=== PATIENT | female | born 1965 | race Caucasian/White ===

== ENCOUNTER 2016-12-20 11:12 | Emergency (ER) | payer MEDICAID ==
[2014-02-15 16:54] VITALS: BMI 41.0
[~2016-12-20 11:12] MED LIST: LORTAB 5/500 TA1 TA2 PO; MULTI-DAY VITAM1 TAB PO; TRAZODONE HCL50 MG PO; ZESTORETIC 20-1 EACH; ZESTORETIC 20-1 EACH PO
[2016-12-20 13:04] LABS: BASOPHILS 0.5 % (0.0-2.0); EOSINOPHILS 5.5 % (0-7); HEMATOCRIT 41.4 % (36.0-48.0); HEMOGLOBIN 13.9 g/dL (12-16); LYMPHOCYTES 23.4 % (15-50); MCH 29.4 pg (26.0-34.0); MCHC 33.6 g/dL (31.0-37.0); MCV 87.7 fL (80.0-100.0); MEAN PLATELET VOLUME 11.4 fL (7.4-10.4); MONOCYTES 9.7 % (2-11); NEUTROPHILS 60.9 % (40-80); RBC 4.72 10x6/uL (4.00-5.40); RDW 15.3 % (11.5-14.5)
[2016-12-20 13:24] LABS: PLATELET COUNT 62 10x3/uL (130-400)
[2016-12-20 13:37] LABS: ALKALINE PHOSPHATASE 134 U/L (46-116); ALT (SGPT) 40 U/L (10-68); AMYLASE - SERUM 43 U/L (25-115); BILIRUBIN - TOTAL 1.25 mg/dL (0.2-1.3); CALC OSMOLALITY 278 mosm/kg (275-300); CALCIUM 9.3 mg/dL (8.5-10.1); CARBON DIOXIDE 29.8 mmol/L (21.0-32.0); CHLORIDE - SERUM 105 mmol/L (98-107); CREATININE - SERUM 0.7 mg/dL (0.6-1.3); GLUCOSE 105 mg/dL (74-106); LIPASE 184 U/L (73-393); POTASSIUM - SERUM 3.8 mmol/L (3.5-5.1); PROTEIN - SERUM 7.1 g/dL (6.4-8.2); SODIUM 141 mmol/L (136-145); UREA NITROGEN 8 mg/dL (7-18); eGFR NON AFRICAN AMERICAN > 90 mL/min (90-120)
== END 2016-12-20 15:48 | disposition home or self-care (01) ==
LOC: D.ER 11:12
PROVIDERS: Emergency Medicine
DX: D73.2 Chronic congestive splenomegaly (principal); E11.9 Type 2 diabetes mellitus without complications; I10 Essential (primary) hypertension; E07.9 Disorder of thyroid, unspecified

== ENCOUNTER → 2017-01-29 17:20 | Outpatient (CLI) | payer MEDICAID ==
[2014-02-15 16:54] VITALS: BMI 41.0
== END | disposition home or self-care (01) ==
LOC: D.MAMMO 15:45
DX: Z12.31 Encounter for screening mammogram for malignant neoplasm of breast (principal)

== ENCOUNTER → 2017-02-05 09:04 | Outpatient (CLI) | payer MEDICAID ==
[2014-02-15 16:54] VITALS: BMI 41.0
[2017-02-05 09:54] LABS: % SATURATION 34 % (15-55); IRON 99 ug/dl (35-150); TOTAL IRON BIND CAPACITY 286 ug/dl (260-445); UNSAT IRON BIND CAPACITY 187 ug/dl (150-375)
[2017-02-05 10:09] LABS: THYROID STIMULATING HORMONE 0.64 uIU/mL (0.36-3.74)
[2017-02-06 08:22] LABS: ALPHA FETOPROTEIN -(TUMOR MRK) 7.5 ng/mL (0.0-8.3)
== END | disposition home or self-care (01) ==
LOC: D.LAB 09:04 → D.US 10:00
PROVIDERS: Internal Medicine Gastroenterology
DX: K59.00 Constipation, unspecified (principal)

== ENCOUNTER 2019-11-06 08:10 | Outpatient (CLI) | payer MEDICAID ==
[~2019-11-06] VITALS: Ht 162.6 cm; Wt 95.9 kg
[2019-11-06 09:17] VITALS: BP 143/73; Ht 162.6 cm; Wt 95.9 kg
[2019-11-06 10:37] LABS: BASOPHILS 0.5 % (0-2); EOSINOPHILS 8.4 % (0-7); HEMATOCRIT 36.8 % (36.0-48.0); HEMOGLOBIN 12.3 g/dL (12-16); LYMPHOCYTES 14.1 % (15-50); MCH 30.4 pg (26.0-34.0); MCHC 33.4 g/dL (31.0-37.0); MCV 90.9 fL (80.0-100.0); MEAN PLATELET VOLUME 10.2 fL (7.4-10.4); MONOCYTES 8.9 % (2-11); NEUTROPHILS 68.1 % (40-80); RBC 4.05 10x6/uL (4.00-5.40); RDW 15.6 % (11.5-14.5); WBC 3.7 10x3/uL (4.8-10.8)
[2019-11-06 10:38] LABS: PLATELET COUNT 95 10x3/uL (130-400)
[2019-11-06 11:00] LABS: PLATELET ESTIMATE DECREASED
== END 2019-11-06 11:05 | disposition home or self-care (01) ==
LOC: D.OPS 08:10
PROVIDERS: ATTEND Internal Medicine Hematology & Oncology
DX: D69.49 Other primary thrombocytopenia (principal)